=== PATIENT | female | born 1965 | race Caucasian/White ===

== ENCOUNTER 2024-07-19 06:13 | Day surgery (SDC) | payer BC, SELFPAY ==
[2024-07-19 11:16] VITALS: BMI 22.8
[2024-07-19 11:17] VITALS: BMI 22.8
[2024-07-19 13:02] VITALS: BP 143/75
[2024-07-19 13:17] VITALS: BP 90/51
[2024-07-19 13:30] VITALS: BP 91/65
== END 2024-07-19 13:43 | disposition home or self-care (01) ==
LOC: GI 06:13
PROVIDERS: ATTENDING PHYSICIAN Internal Medicine Gastroenterology
DX: K31.89 Other diseases of stomach and duodenum (principal); R93.5 Abnormal findings on diagnostic imaging of other abdominal regions, including retroperitoneum; R10.9 Unspecified abdominal pain; K25.9 Gastric ulcer, unspecified as acute or chronic, without hemorrhage or perforation; K29.50 Unspecified chronic gastritis without bleeding; C49.A2 Gastrointestinal stromal tumor of stomach
CPT/HCPCS: 43238; 43239; 88173; 88305; 88341; 88342

== ENCOUNTER 2024-09-04 11:11 | Inpatient (IN) | payer BC, SELFPAY ==
[2024-08-24 09:04] LABS: Hematocrit 38.7 % (37.0-47.0); Hemoglobin 12.9 g/dL (12.0-16.0); Mean Corp Hgb Conc. 33.3 g/dL (33.0-37.0); Mean Corpuscular Hgb 30.8 pg (27.0-31.0); Mean Corpuscular Volume 92.4 fL (81.0-99.0); Mean Platelet Volume 9.3 fL (7.4-10.4); Platelet Count 447 10^3/uL (130-400); Red Blood Cell Count 4.19 10^6/uL (4.20-5.40); Red Cell Dist. Width 12.2 % (11.5-14.5); White Blood Cell Count 4.9 10^3/uL (4.8-10.8)
[2024-08-24 09:23] LABS: INR 1.02; PT 13.8 Sec (11.4-14.6)
[2024-08-24 09:24] LABS: APTT 27.8 Sec (23.4-35.0)
[2024-08-24 09:32] LABS: ALT (SGPT) 46 U/L (0-35); AST (SGOT) 36 U/L (14-36); Albumin 4.2 g/dl (3.5-5.0); Alkaline Phosphatase 66 U/L (38-126); Blood Urea Nitrogen 14 mg/dl (7-17); Calcium 9.9 mg/dl (8.4-10.2); Carbon Dioxide 30 mmol/L (22-30); Chloride 104 mmol/L (98-107); Glucose 83 mg/dl (70-99); Potassium 4.8 mmol/L (3.5-5.1); Sodium 141 mmol/L (135-145); Total Bilirubin 0.7 mg/dl (0.2-1.3); Total Protein 7.1 g/dl (6.3-8.2); eGFR > 60.00
[2024-08-24 13:39] VITALS: BMI 21.5
[2024-09-04] VITALS (23 sets, daily range): BP systolic 60–124; BP diastolic 30–68; BMI 21.5
[2024-09-04] MEDS: TYLENOL 1000 MG PO (11:26)
[2024-09-04] MEDS: NEURONTIN 300 MG PO (11:27)
[2024-09-04] MEDS: NORMOSOL-R/PLASMALYTE-A 1000 IV ×3 (11:40→21:00)
[2024-09-04] MEDS: HEPARIN 5000 UNITS SC ×2 (11:48→20:46)
--- NOTE | 2024-09-04 15:01 | OR.RPT ---
Operative Report
Operative Report
Date of : 1965 3:00 PM
Date of Operation: September 04, 2024
Preoperative Diagnosis: Stomach GIST - [id number]
Postoperative Diagnosis: Same
Surgeon: Rory Castro M.D.
Operation: Attempted laparoscopy, resection of the gastric GIST - 53224
Anesthesia: General Anesthesia
Estimated Blood Loss: 20 cc
Drains: None
Specimen: Gastric tumor
Findings: Gastric tumor
Complications: None
Procedure:
The patient was transported to the operating room and positioned in the standard supine position. Once appropriate general endotracheal anesthesia was established, a Pressley catheter and NGT were inserted. The patient's abdomen was prepared and draped
in the customary manner.
At this time, a 1.5 cm supraumbilical incision was made with a #15 blade through the skin into the subcutaneous tissue. The fascia was identified and divided, and the intraperitoneal cavity was entered under direct vision. A Dasilva trocar was
placed, and the abdomen was insufflated to 15 mmHg. The abdomen was explored, and significant adhesions from her previous surgeries were noted throughout.
A 5 mm trocar was inserted into the left quadrant of the abdomen. The adhesions in the right upper quadrant were carefully lysed. Using a grasper, the liver was lifted off the underlying stomach. The visualization revealed no obvious gastric tumor.
Based on this information, a decision was made to proceed with exploratory laparotomy by making an upper midline incision with a #10 blade, which was taken through the skin into the subcutaneous tissue. The fascia was divided, and the abdomen was
entered. An Minesh wound retractor was placed, and the stomach was palpated. A tumor measuring approximately 3 cm was noted in the proximal portion of the stomach at the lesser curvature. This was carefully dissected away from the liver and the
underlying pancreas using an endo-MARY vascular stapler and a ligature.
The proximal portion of the stomach was completely from the surrounding structures. The tumor was resected with a 2 cm margin using an endo-MARY purple tri-stapler. After removal, the tumor was sent to pathology for permanent sectioning.
Hemostasis was achieved. The fascia was approximated with a #0 loop PDS in a running manner. The subcutaneous tissue was approximated with #3-0 Vicryl in a running manner. The skin was approximated with #4-0 Monocryl in a running subcuticular manner.
The previously made supraumbilical incision was also closed using #1 Vicryl for the fascial layer in an interrupted manner, and the subcutaneous tissue was approximated with #3-0 Monocryl in an interrupted manner. The skin was approximated with #4-0
Monocryl using a running subcuticular technique. The left quadrant 5 mm trocar was re-approximated with #4-0 nylon. Steri-Strips and therapeutic systems were applied.
The final needle, sponge, and instrument counts were correct. The Pressley catheter was removed. The patient was extubated and transferred to the PACU in a stable condition.
[2024-09-04] MEDS: DILAUDID 0.25 MG IV (15:59)
[2024-09-04] MEDS: D5/0.9% SODIUM CHLORIDE 1000 IV (17:30)
--- NOTE | 2024-09-04 17:35 | PTCARENOTE ---
Pt received from the PACU via bed. Transport was w/o incident. Pt is Drowsy, easily arousable. VS: 97.9-74-16-83/53-99 on 2Lnc. Will monitor BP closely and notify MD if it does not improve. Abd with antibacterial dressing, C/D/I no drainage noted at
this time. NGT to left nare hooked to low intermittent suction. Pt denies nausea and reports back pain. Pt repositioned and propped with pillows for comfort. Pt instructed on plan of care. Pt verbalized understanding of instructions. Call merino is
within reach.
[2024-09-04 21:07] LABS: Glucose - Point of Care 203 mg/dl (70-99)
[2024-09-04] MEDS: OFIRMEV 100 IV (22:35)
[2024-09-04 23:01] LABS: Hematocrit 33.6 % (37.0-47.0); Hemoglobin 11.7 g/dL (12.0-16.0); Mean Corp Hgb Conc. 34.8 g/dL (33.0-37.0); Mean Corpuscular Hgb 31.4 pg (27.0-31.0); Mean Corpuscular Volume 90.1 fL (81.0-99.0); Mean Platelet Volume 9.4 fL (7.4-10.4); Platelet Count 427 10^3/uL (130-400); Red Blood Cell Count 3.73 10^6/uL (4.20-5.40); Red Cell Dist. Width 12.1 % (11.5-14.5); White Blood Cell Count 10.5 10^3/uL (4.8-10.8)
[2024-09-04] MEDS: TORADOL 15 MG IV (23:07)
[2024-09-04] MEDS: NSS 500 IV (23:13)
[2024-09-04 23:14] LABS: Blood Urea Nitrogen 15 mg/dl (7-17); Carbon Dioxide 21 mmol/L (22-30); Chloride 106 mmol/L (98-107); Estimated Creatinine Clearance 80 ml/min; Glucose 157 mg/dl (70-99); Potassium 3.9 mmol/L (3.5-5.1); Sodium 137 mmol/L (135-145); eGFR > 60.00
[2024-09-05] VITALS (99 sets, daily range): BP systolic 81–138; BP diastolic 42–100; BMI 23.2
--- NOTE | 2024-09-05 | PTCARENOTE ---
Pt called complaining of pain. proceeded to check VS. Pt BP 60/30 manually. Pt found to be cold, clammy and diaphoretic. notified CASE ASSEMBLER. ordered to increase fluids. CASE ASSEMBLER at bedside. Pt BP 75/43. 1L bolus ordered. Pt bp after bolus 96/53. after bolus was
completed BP was continuing to drop. another 500 ml bolus ordered Pt BP 80/53. CASE ASSEMBLER ordered to transfer pt to ICU.
[2024-09-05] MEDS: LEVOPHED 250 IV ×2 (01:12→15:10)
--- NOTE | 2024-09-05 01:49 | W.PN.UPDATE ---
Update Note
Progress Note Update
2100 Asked to eval pt for hypotension.
Pt had gastric tumor removal with dr Castro today. Reviewing chart pt bp low most of stay in pacu. Pt tells me her BP normally is around 90/50s. SBPs now have been 60-70s. 1 liter ivf bolus given with minimal improvements. Pt did feel clammy and woozy.
Pt also in pain and making it difficult to medicate due to low bp.
TT sent to Dr Castro updating him on the events. Asked if he would be ok with giving pt toradol for pain. This was approved.
LAbs sent: HH stable at 11.7
After about an hour pt bp relatively unchanged after approx 1500ml of bolus.
Will transfer to IMU for low dose pressor
--- NOTE | 2024-09-05 01:51 | PTCARENOTE ---
Received patient AAOx4, following commands, reporting tolerable pain level of 4. NS 60s, levophed started to maintain SBP>90. Normothermic, palpable pedal pulsesd b/l, NATHAN stockings and SCDs on. Lung sounds diminished throughout, shallow breathing,
saturating 99% on room air. Abdomen soft, round, tender to palpation. Midline incision covered with primaseal. left laparoscopic site with surgical glue intact. Left nare [place] sump to LIWS putting out red/brown drainage. PIVs patent, WNL. On D5 NSS
per order. updated on phone. Call merino within reach.
[2024-09-05] MEDS: D5/0.9% SODIUM CHLORIDE 1000 IV ×2 (03:22→13:22)
[2024-09-05] MEDS: DILAUDID 0.5 MG IV (03:22)
[2024-09-05] MEDS: OFIRMEV 100 IV ×4 (03:22→22:34)
[2024-09-05 04:50] LABS: Hematocrit 25.5 % (37.0-47.0); Hemoglobin 8.9 g/dL (12.0-16.0); Mean Corp Hgb Conc. 34.9 g/dL (33.0-37.0); Mean Corpuscular Hgb 31.3 pg (27.0-31.0); Mean Corpuscular Volume 89.8 fL (81.0-99.0); Mean Platelet Volume 9.5 fL (7.4-10.4); Platelet Count 500 10^3/uL (130-400); Red Blood Cell Count 2.84 10^6/uL (4.20-5.40); Red Cell Dist. Width 12.1 % (11.5-14.5); White Blood Cell Count 9.3 10^3/uL (4.8-10.8)
[2024-09-05 05:25] LABS: Blood Urea Nitrogen 13 mg/dl (7-17); Calcium 7.6 mg/dl (8.4-10.2); Carbon Dioxide 24 mmol/L (22-30); Chloride 110 mmol/L (98-107); Estimated Creatinine Clearance 80 ml/min; Glucose 191 mg/dl (70-99); Magnesium 2.3 mg/dl (1.6-2.3); Phosphorus 3.5 mg/dl (2.5-4.5); Potassium 4.2 mmol/L (3.5-5.1); Sodium 136 mmol/L (135-145); eGFR > 60.00
[2024-09-05] MEDS: HEPARIN SC (08:51)
[2024-09-05] MEDS: NSS (PRESERVATIVE FREE) 8 ML IV (08:52)
[2024-09-05] MEDS: PEPCID 20 MG IV (08:52)
[2024-09-05] MEDS: TRANEXAMIC ACID 110 MG IV (08:53)
[2024-09-05] MEDS: DILAUDID 0.25 MG IV ×2 (09:17→21:09)
[2024-09-05 10:54] LABS: Hematocrit 24.3 % (37.0-47.0); Hemoglobin 8.5 g/dL (12.0-16.0); Mean Corpuscular Hgb 31.5 pg (27.0-31.0); Mean Platelet Volume 9.6 fL (7.4-10.4); Platelet Count 531 10^3/uL (130-400); Red Cell Dist. Width 12.3 % (11.5-14.5); White Blood Cell Count 11.8 10^3/uL (4.8-10.8)
[2024-09-05 11:33] LABS: Blood Urea Nitrogen 12 mg/dl (7-17); Calcium 8.2 mg/dl (8.4-10.2); Carbon Dioxide 22 mmol/L (22-30); Chloride 110 mmol/L (98-107); Estimated Creatinine Clearance 80 ml/min; Glucose 149 mg/dl (70-99); Potassium 4.4 mmol/L (3.5-5.1); Sodium 136 mmol/L (135-145); eGFR > 60.00
--- NOTE | 2024-09-05 13:05 | CM ---
Patient seen at bedside with Makenna
IA completed
Explained CM role
Operation: Attempted laparoscopy, resection of the gastric GIST - 37705
PMH: ovarian ca dx in 1994
Patient lives with in a 2 story home, 2 steps to enter, full bath on 1st floor, flight stairs to bedroom
PLOF: independent, no assistive device used
DME: walker, crutches, cane, wheelchair
Denies VN/Rehab
Denies insecurities
PCP: Jena Peck
Pharmacy: [facility]
PLAN: TBD, based upon medical progression, CM to continue to follow
--- NOTE | 2024-09-05 13:10 | PTCARENOTE ---
Received pt @ change of shift. Assessment per charting- see flow sheet. Levo gtt titrated up over shift to keep SBP >90- see flow sheet. Dr. Castro made aware of increasing levo requirement. No s/s of obvious bleeding; hbg @ 1100 resulted 8.5.
results also relayed to Dr. Castro. Pt.'s remains @ bedside w call wilber w in reach.
--- NOTE | 2024-09-05 14:45 | W.PN.GENERIC ---
Assessment / Plan
-
S/p resection of gastric GIST POD #1
Hypotension
BP in 100s/60s on 8 of Levophed
Most likely multifactorial, low baseline BP, perioperative blood loss, anesthesia, dilutional
Continue current support. Hope to taper off Levophed
Will check another Hg @ 6pm
Continue monitor in IMU
Encourage pulmonary toilet
Physician Progress Note
Subjective
C/o incisional pain
Objective
Vital Signs
Temp Pulse Resp BP Pulse Ox
97.6 F 66 21 88/44 100
09/05/24 11:30 09/05/24 11:01 09/05/24 11:01 09/05/24 11:01 09/05/24 11:08
Abdomen - soft, ND, NT, Dsg - C/D/I
Hg drifted to 8.5 (11 AM today)
--- NOTE | 2024-09-05 14:49 | CON.HOSP ---
Family Physician
-
Family Physician: Jena Peck
Chief Complaint
-
hypotension
History of Present Illness
Patient is a 59-year-old female with past medical history significant for osteoarthritis, hyperlipidemia and Hx ovarian cancer (Dx 1994) who had a gastrointestinal stromal tumor resection yesterday with Dr. Castro. Following the procedure patient
became hypotensive and admitted to monitor and manage. Patient reports her normal SBP is 90-110. Overnight patient continued to become hypotensive and was transferred to IMU for pressor support. Patient is currently on 8 units Levophed with a MAP of
59. Patient states she has some abdominal discomfort and is managed with current pain regimen. She denies any fevers, chills, shortness of breath, nausea or vomiting.
Medical History
Past Medical History
Past Medical History: Reports Other
Additional Past Medical History:
osteoarthritis
hyperlipidemia
Hx ovarian cancer (Dx 1994)
Past Surgical History: Reports Other
Additional Past Surgical History:
gastrointestinal stromal tumor resection
frozen shoulder release
eye surgery
2 surgeries pertaining to ovarian cancer
Social History
Tobacco: Non-smoker
Alcohol: Occasional (rare )
Drug: None
Family History
Family History: Reviewed & Not Pertinent
Allergies / Home Medications
Allergies reflects when Allergies were last updated in [facility].
Home Medications with original date entered in [facility]
Allergy/Medication List:
Allergies
Allergy/AdvReac Type Severity Reaction Status Date / Time
adhesive Allergy ERYTHEMA Verified 09/04/24 11:11
amoxicillin Allergy Rash Verified 09/04/24 11:11
codeine Allergy rash and Verified 09/04/24 21:47
nausea
Home Medications
aspirin 81 mg capsule 81 mg PO HS Blood Pressure 07/19/24
loratadine 10 mg capsule 10 mg PO DAILY PRN allergies 07/19/24
multivitamin 1 tab PO DAILY Supplement 07/19/24
simvastatin 40 mg tablet 40 mg PO HS High Cholesterol 07/19/24
Review of Systems
-
History Source: Patient
Abdomen/GI: Reports Abdominal Pain (mild discomfort post surgery )
Physical Exam
Vital Signs
Vital Signs
Temp Pulse Resp BP Pulse Ox
97.6 F 66 21 88/44 100
09/05/24 11:30 09/05/24 11:01 09/05/24 11:01 09/05/24 11:01 09/05/24 11:08
Physical Exam
General: Well Developed, Well Nourished and No Apparent Distress
HEENT: Normocephalic, Moist Mucous Membranes and Atraumatic
Respiratory: Clear
Cardiac: S1/S2 and Regular Rhythm
Breast: Deferred by me
GI: Soft, Non Tender, Non Distended and Normal Bowel Sounds
Rectal: Deferred by Provider
Musculoskeletal: No Clubbing, No Cyanosis and No Edema
Skin: Other (dressing to abdominal incision C/D/I)
Neuro: Awake, Alert, AO x 3 and Nonfocal/Grossly Intact
Psych: Calm and Intact Judgement
Laboratory Results
-
PT 13.8 Sec (11.4-14.6) 08/24/24 08:40
INR 1.02 08/24/24 08:40
APTT 27.8 Sec (23.4-35.0) 08/24/24 08:40
Total Bilirubin 0.7 mg/dl (0.2-1.3) 08/24/24 08:40
AST 36 U/L (14-36) 08/24/24 08:40
ALT 46 U/L (0-35) H 08/24/24 08:40
Alkaline Phosphatase 66 U/L (38-126) 08/24/24 08:40
Data Reviewed
-
Lab Data: Labs Reviewed (WBC 11.8, hgb 8.5, hct 24.3)
Impression / Plan
-
IMPRESSION/PLAN:
#hypotension likely 2/2 postsurgical anemia
#acute anemia
#gastrointestinal stromal tumor resection
Hgb downtrending today 11.7 --> 8.5
- Transfer to ICU level of care
- Consult Under Trimmer
- Levophed gtt
- IVF 125cc/hr
- monitor H/H
- Transfuse for hgb < 8.0
#electrolyte imbalance
Ca+ 8.2
- check CMP with next lab drawn, replete as indicated
#hyperlipidemia
- continue aspirin and atorvastatin
#osteoarthritis
#Hx ovarian cancer (Dx 1994)
Code status: full code
DVT prophylaxis: heparin sq
--- NOTE | 2024-09-05 15:19 | W.PN.UPDATE ---
Update Note
Progress Note Update
This is an addendum to H&P written by Marilyn Gutierrez on 09/05/2024.� Patient seen examined independently with TOBACCO WRAPPING MACHINE TENDER.
59-year-old female past medical history of ovarian cancer in 1994 status post�surgery, hypotension with baseline blood pressure�90s-110 systolic, came in for elective resection of�GIST tumor.� She was found to have GI mass in May with biopsy
showing GIST in May.�Patient underwent resection of GIST tumor yesterday with 20 cc blood loss.
Afterwards patient became hypotensive requiring bolus of IV fluids and later Levophed.� Patient is currently requiring higher rate of Levophed requiring transfer to ICU.
Labs show leukocytosis, downtrending hemoglobin from 11.7-8.5 today. Blood sugar currently 400-500s due to being D5NS fluids.�
Suspect hypotension secondary to postsurgical anemia. No signs of sepsis. Continue IV fluids but change D5NS to NS due to hyperglycemia. Currently on Levophed.�Recheck CBC at 1800.Transfuse for Hb <8. �
--- NOTE | 2024-09-05 16:19 | CON.INTV ---
Consultation
Consultation Request
Date/Time Consultation Requested: 09/05/2024
Date/Time Consultation Performed: 09/05/2024
Reason for Consultation: Pressor support
Medical History
-
Chief Complaint: Hypotension
History of Present Illness:
59-year-old female past med history of OA, hyperlipidemia, ovarian cancer in 1994 who presented to [facility] yesterday for elective removal of a GIST tumor. She had a procedure with Dr. Rory Castro. Following her procedure she was found to be
hypotensive and transferred to the IMU for pressor support. She was started on Levophed, currently getting 8 as well as IV fluid infusion. She was persistently hypotensive and was transferred to ICU for increasing pressor support. Of note her
hemoglobin dropped from 11.7-8.5 today. Patient reports no bowel movements, only passing gas. As for today she is only complaining of pain in her belly, diffusely and back, chronic. She is using Dilaudid and Tylenol for pain. Of note she has
aspirin on her home meds however she reports she has not taken aspirin in over 7 days and anticipation for surgery, was started on aspirin for thrombocytosis and cardiac preventative measurements. Patient reports that overnight she had episodes
where her pressure was dropping and she began feeling hot sweaty.
Past Medical History
Past Medical History: Other (OA, hyperlipidemia)
Past Surgical History: Other (GIST removal)
Allergies / Home Medications
Allergies
Allergy/AdvReac Type Severity Reaction Status Date / Time
adhesive Allergy ERYTHEMA Verified 09/04/24 11:11
amoxicillin Allergy Rash Verified 09/04/24 11:11
codeine Allergy rash and Verified 09/04/24 21:47
nausea
Home Medications
�Medication �Instructions �Recorded �Confirmed �Last Taken �Type
aspirin 81 mg capsule 81 mg PO HS Blood Pressure 07/19/24 09/04/24 08/28/24 History
loratadine 10 mg capsule 10 mg PO DAILY PRN allergies 07/19/24 09/04/24 09/01/24 History
multivitamin 1 tab PO DAILY Supplement 07/19/24 09/04/24 08/28/24 History
simvastatin 40 mg tablet 40 mg PO HS High Cholesterol 07/19/24 09/04/24 09/03/24 21:00 History
Review of Systems
-
Constitutional: Fatigue and Other (Reported hot, sweaty)
Respiratory: No Symptoms
Cardiac: No Symptoms
Abdomen/GI: Abdominal Pain and Nausea
Neuro: No Symptoms
Vitals / Labs / Diagnostic Testing
Vital Signs
Temp Pulse Resp BP Pulse Ox
98.1 F 66 21 88/44 100
09/05/24 15:10 09/05/24 11:01 09/05/24 11:01 09/05/24 11:01 09/05/24 11:08
Diagnostic Testing:
Physical Exam
-
Cardiovascular: S1/S2 and Regular Rhythm
Respiratory: Clear
GI: Soft, Tender (Diffusely tender all 4 quadrants, no rebound, no guard) and Other (Dressing and sites are clean, dressed. No redness, no foul smell)
Neurology: Awake, Alert, Oriented and AO x 3
Assessment
-
Assessment:
59-year-old female presents for GIST elective removal, transferred to IMU and ICU for increasing pressor support. Component of anemia, suspected secondary to surgery.
Plan:
#Hypotension
#Acute blood loss anemia
#GIST resection
Currently patient is requiring 8 of Levophed, MAP is sufficient, nursing reports she will likely titrate down
Taper Levophed as tolerated
Was originally on D5 fluids, was transferred to normal saline after elevated blood glucose
Continue 125 cc normal saline infusion
Hemoglobin downtrending 11.7-8.5
Suspect component of delusional and acute blood loss anemia from surgery. No signs of sepsis
Hemoglobin target of 8 for transfusion by surgery, patient aware and willing to accept blood if needed
Patient reports no bowel movements, only passing gas, pressor support not increasing
Hemoglobin recheck pending at 6 PM tonight, if continually downtrending will check CT abdomen pelvis with IV contrast
Continue ICU level care
Will check lactate and VBG
Reinitiated IV Tylenol 1000 mg as needed every 6 hours as patient is n.p.o.
Dilaudid as needed, antiemetics as needed
Surgical oncology following
Continue DVT prophylaxis subcu heparin [address] every [address] Pressley
Daily CBC in a.m.
#Hypocalcemia
Calcium low, albumin not checked, cannot correct for albumin
Albumin pending, correct as needed
Diet: N.p.o.
DVT prophylaxis: Subcu heparin
CODE STATUS full code
[2024-09-05] MEDS: NSS 1000 IV (16:26)
[2024-09-05 18:46] LABS: Venous Blood Gas B.E. -1.7 mmol/L (-4 to +4); Venous Blood Gas HCO3 23.7 mmol/L (22-27); Venous Blood Gas O2 Sat % 99.4 %; Venous Blood Gas pCO2 42 mmHg (35-48); Venous Blood Gas pH 7.36 (7.32-7.43); Venous Blood Gas pO2 132 mmHg (30-50)
[2024-09-05 18:53] LABS: Hematocrit 23.1 % (37.0-47.0); Hemoglobin 7.9 g/dL (12.0-16.0); Mean Corp Hgb Conc. 34.2 g/dL (33.0-37.0); Mean Corpuscular Hgb 31.2 pg (27.0-31.0); Mean Corpuscular Volume 91.3 fL (81.0-99.0); Mean Platelet Volume 9.7 fL (7.4-10.4); Platelet Count 389 10^3/uL (130-400); Red Blood Cell Count 2.53 10^6/uL (4.20-5.40); Red Cell Dist. Width 12.3 % (11.5-14.5); White Blood Cell Count 11.5 10^3/uL (4.8-10.8)
[2024-09-05 19:00] LABS: Lactic Acid 1.7 mmol/L (0.7-2.0)
[2024-09-05 19:08] LABS: ALT (SGPT) 42 U/L (0-35); AST (SGOT) 50 U/L (14-36); Albumin 3.4 g/dl (3.5-5.0); Alkaline Phosphatase 50 U/L (38-126); Blood Urea Nitrogen 9 mg/dl (7-17); Calcium 8.1 mg/dl (8.4-10.2); Carbon Dioxide 25 mmol/L (22-30); Chloride 112 mmol/L (98-107); Estimated Creatinine Clearance 80 ml/min; Glucose 118 mg/dl (70-99); Potassium 4.5 mmol/L (3.5-5.1); Sodium 137 mmol/L (135-145); Total Bilirubin 0.7 mg/dl (0.2-1.3); Total Protein 5.8 g/dl (6.3-8.2); eGFR > 60.00
--- NOTE | 2024-09-05 20:37 | PTCARENOTE ---
Flushed right wrist PIV before blood admin. PIV is sensitive but flushes good. Pain decreases as flush continued. Started blood admin and rt wrist PIV is hurting pt. Called VAT, currently present at bedside with pt.
[2024-09-05] MEDS: HEPARIN 5000 UNITS SC (22:21)
--- NOTE | 2024-09-05 22:49 | PTCARENOTE ---
Received patient AAOx3, following commands, reporting 4/10 pain. Ofirmev given, receiving blood, at bedside. NS 80s, BP stable, titrating levophed to maintain SBP>90. Trace generalized anasarca, palpable pedal and radial pulses b/l.
Normothermic. 99% on room air, lung sounds diminished throughout, IS at bedside. Abdomen soft, tender, positive bowel sounds. Midline abdominal dressing CDI, left laparoscopic site DANIA with surgical glue intact. Right midline inserted by IV team.
Left PIV patent, right hand IV removed due to pain/swelling. Repositioned, call merino within reach.
--- NOTE | 2024-09-05 23:38 | PTCARENOTE ---
Blood finished, vitals charted. Patient comfortable after ofirmev, call merino within reach.
[2024-09-06] VITALS (44 sets, daily range): BP systolic 79–148; BP diastolic 45–85; BMI 24.1
[2024-09-06] MEDS: NSS 1000 IV ×2 (01:21→08:46)
--- NOTE | 2024-09-06 04:30 | PTCARENOTE ---
Patient assessment unchanged from previous. Labs sent, repositioned, fresh ice packs given. Patient denied to be washed up now, wants to do it later. Ofirmev given for 4/10 abdominal pain. Call merino within reach.
[2024-09-06] MEDS: OFIRMEV 100 IV ×4 (04:32→22:02)
[2024-09-06 04:36] LABS: Hematocrit 25.4 % (37.0-47.0); Hemoglobin 8.8 g/dL (12.0-16.0); Mean Corp Hgb Conc. 34.6 g/dL (33.0-37.0); Mean Corpuscular Hgb 31.5 pg (27.0-31.0); Mean Platelet Volume 9.5 fL (7.4-10.4); Platelet Count 356 10^3/uL (130-400); Red Blood Cell Count 2.79 10^6/uL (4.20-5.40); Red Cell Dist. Width 13.1 % (11.5-14.5); White Blood Cell Count 8.6 10^3/uL (4.8-10.8)
[2024-09-06 04:54] LABS: Blood Urea Nitrogen 8 mg/dl (7-17); Carbon Dioxide 26 mmol/L (22-30); Chloride 115 mmol/L (98-107); Estimated Creatinine Clearance 70 ml/min; Glucose 93 mg/dl (70-99); Potassium 4.2 mmol/L (3.5-5.1); Sodium 141 mmol/L (135-145); eGFR > 60.00
[2024-09-06] MEDS: DILAUDID 0.25 MG IV ×3 (07:27→19:24)
--- NOTE | 2024-09-06 08:00 | PTCARENOTE ---
Assumed care of patient. Pt rec'd sleeping. Easily arousable. Pleasant. A&Ox3. Abdominal pain this am....pain meds provided...see MAR. JHAVERI's but weak. S1 S2 reg w/ NSR on monitor. +PP. +1 generalized edema. Thigh hi teds/knee hi SCD's on.
On R/A...sats 99%. Lungs clear but diminished in bases. Abdomen round...hypo BS. Pressley draining yellow urine. Pressley care done. Original post op mid abdominal aquacell noted...mild shadowing. (L) abdominal lap site. Ultrasound guided 20P LFA
noted...IVF's and levophed gtt infusing. Right midline noted. VS documented. Mouth swabs provided. Call merino within reach. Will continue to monitor closely.
[2024-09-06] MEDS: HEPARIN 5000 UNITS SC ×2 (08:46→19:24)
[2024-09-06] MEDS: PEPCID 20 MG IV (08:46)
[2024-09-06] MEDS: NSS (PRESERVATIVE FREE) 8 ML IV (08:46)
--- NOTE | 2024-09-06 10:45 | PTCARENOTE ---
OOB to chair w/ assist x 2. Pt's at bedside and fully updated. Levophed gtt weaned to off. Will monitor BP's.
--- NOTE | 2024-09-06 11:00 | W.PN.INTV ---
Today's Communication / Plan
Recommendations
Surgical oncology to evaluate for diet
Continue tapering Levophed as tolerated
Changed normal saline to lactated Ringer's 75 cc/h
Continue supportive medications for pain and nausea
Recheck H&H at 3 PM, transfuse packed red blood cell if hemoglobin below 8
Assessment
-
Assessment:
59-year-old female presents for GIST elective removal, transferred to IMU and ICU for increasing pressor support. Component of anemia, suspected secondary to surgery.
Plan:
#Hypotension
#Acute blood loss anemia
#GIST resection
Currently patient requiring 2 of Levophed, MAP greater than 65
Continue Taper Levophed as tolerated
Discontinue normal saline as patient is becoming hyperchloremic and sodium is trending upwards.
Replaced with LR 75 cc/h
Patient is starting to appear edematous, once patient able to tolerate p.o. medications, no longer requiring pressors, blood pressures are no longer soft, will discontinue fluids and initiate p.o. Lasix
Hemoglobin decreased to 7.9 overnight and patient received 1 unit of packed red blood cell. Hemoglobin appropriately raised to 8.8. Continue transfuse if hemoglobin less than 8 as patient is requiring pressors
Will recheck H&H today at 3 PM
No signs of sepsis
Patient reports no bowel movements, only passing gas, pressor support decreasing
Lactate and VBG within normal limits
IV Tylenol and IV Dilaudid as needed for pain
antiemetics as needed
Surgical oncology following. Will defer diet to surgical oncology
Continue DVT prophylaxis subcu heparin 5000 every 12
Pressley placed, patient making ample dilute urine
Daily CBC in a.m.
#Hypocalcemia
Resolved
Corrected calcium 8.5
Diet: N.p.o.
DVT prophylaxis: Subcu heparin
CODE STATUS full code
Subjective Dataa
Subjective Data
Date of Service:
Date of Service: September 06, 2024
Subjective:
Patient received 1 unit of packed red blood cell overnight for hemoglobin 7.9. Patient still reporting passing gas, no bowel movements. Reports mild postoperative pain in the abdomen, diffusely. Has been able to be weaned down to 2 mcg Levophed,
MAP 73. VBG within normal limits, lactate within normal limits.
Review of Systems
General: Other (Negative)
Cardiopulmonary: Other (Negative)
GI: Abdominal Pain (Diffuse abdominal pain all 4 quadrants, localized around surgical incisions.) and Nausea
Genitourinary: Pressley
Objective Data
Data Reviewed
Vital Signs / I&O / Oxygen:
Vital Signs
Temp Pulse Resp BP Pulse Ox
98.8 F 67 15 109/76 97
09/06/24 07:36 09/06/24 06:00 09/06/24 06:00 09/06/24 05:30 09/06/24 05:45
Intake and Output
09/05/24 09/06/24 09/07/24
06:59 06:59 06:59
Intake Total 1802.6 / 1938.9 4198.9 / 4198.9
Output Total 700 / 700 2235 / 2235
Balance 1102.6 / 1238.9 1963.9 / 1963.9
SaO2 97
Nasal Cannula flow liters per 1
minute
Physical Exam
Cardiovascular: S1-S2
Respiratory: Clear
GI: Soft and Tender (Tender in all 4 quadrants, surgical site clean. No erythema, no foul smell. Tenderness exacerbated around surgical site. No rebound, no guarding.)
Neurology: Awake, Alert, Oriented and AO x 3
Skin: Warm
Labs/Micro/Reports
Lab Data
09/06/24 04:19
[2024-09-06] MEDS: LR 1000 IV (11:48)
--- NOTE | 2024-09-06 12:15 | PTCARENOTE ---
Pt remains resting in chair. No major changes in physical assessment. Remains off levophed gtt. Seen by . Diet advanced to clear liquids.
--- NOTE | 2024-09-06 12:46 | W.PN.GENERIC ---
Assessment / Plan
-
S/p gastric GIST resection POD #2
Stable. No evidence of active bleeding. Currently off Levophed
If hemodynamically remains stable off Levophed, poss transfer to the surgical floor.
Will start clear liquid diet.
Will consider diuresis if remain stable x 24 hours.
Physician Progress Note
Subjective
Feeling better. No N/V. Received 1U of PRBCs.
Objective
Vital Signs
Temp Pulse Resp BP Pulse Ox
98.4 F 59 11 99/66 95
09/06/24 11:42 09/06/24 11:45 09/06/24 11:45 09/06/24 11:30 09/06/24 11:45
Lab Results
09/06/24 04:19
Abdomen - soft. Dsg intact
--- NOTE | 2024-09-06 13:48 | W.PN.HOSP.TC ---
Addendum entered and electronically signed by Joseph Villafana DO 09/06/24 14:04:
Additional diagnosis
Anemia:
- Perioperative blood loss
- Transfused 1 unit PRBCs
- Hemoglobin currently stable without evidence of active bleeding
- Continue to monitor and transfuse further as needed to maintain hemoglobin levels greater than 8.0
Original Note:
Today's Communication/Plan
-
Assessment / Plan
Assessment / Plan
General: No Apparent Distress, Comfortable and Conversant
HEENT: NormoCephalic, Moist mucous membranes, Atraumatic
Respiratory: Clear and Non Labored Respirations
Cardiac: S1/S2 and Regular Rhythm; No Rub or Gallop
GI: Soft, TTP, Non Distended and Normal Bowel Sounds
Musculoskeletal: No Edema, no deformity
Skin: Warm and dry
: Pressley draining clear yellow urine
Neuro: Awake, Alert, Nonfocal/grossly intact
Psych: Calm and Intact Judgment/Insight
Ms. 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
following laparoscopic converted to open abdominal surgery for resection of gastrointestinal stromal tumor. Tolerated procedure well but was hypotensive postoperatively requiring initiation of vasopressors. She has been admitted to the ICU for
further evaluation and management.
Hypovolemic shock:
- Suspect due to periprocedural blood loss in addition to baseline hypotension
- Levophed was placed on hold this morning and maps have been acceptable
- Continue IV fluids
- Doubt infection
- Postoperative leukocytosis likely reactive and has since resolved without antibiotics
Gastrointestinal stromal tumor:
- Follow-up with surgical pathology
- Ongoing treatment per oncology
DVT prophylaxis: Subcu heparin
CODE STATUS: Full code
Total time spent on today's encounter was 40 minutes
Anticipated Discharge: 24 - 48 hours
Subjective/Interval History
-
Date of Service: September 06, 2024
Patient was seen and examined at bedside this morning. Still having significant abdominal pain postoperatively. Blood pressure improved and Levophed is now on hold.
Objective Data
-
Labs:
Laboratory Results
09/06/24 09/06/24
04:19 15:00
WBC 8.6
Hgb 8.8 L Pending
Hct 25.4 L Pending
Plt Count 356
Sodium 141
Potassium 4.2
Chloride 115 H
Carbon Dioxide 26
BUN 8
Creatinine 0.8
Glucose 93
Calcium 8.0 L
Vital Signs:
Vital Signs
Temp Pulse Resp BP Pulse Ox
98.4 F 59 11 99/66 95
09/06/24 11:42 09/06/24 11:45 09/06/24 11:45 09/06/24 11:30 09/06/24 11:45
I&O
09/05/24 09/06/24 09/07/24
06:59 06:59 06:59
Intake Total 1802.6 / 1938.9 4198.9 / 4331.4 805.0 / 805.0
Output Total 700 / 700 2235 / 2335 525 / 525
Balance 1102.6 / 1238.9 1963.9 / 1996.4 280.0 / 280.0
Review of Systems
-
History Source: Patient
All other systems: Reviewed and negative
Abdomen/GI: Reports Abdominal Pain
Physical Exam
-
General: No Apparent Distress
[2024-09-06 15:32] LABS: Hematocrit 24.3 % (37.0-47.0); Hemoglobin 8.6 g/dL (12.0-16.0)
--- NOTE | 2024-09-06 15:59 | CM ---
POD#2, clear liquid diet. No PT eval. Discharge Plan of Care: TBD. Anticipate home with HH RN. Will get preferences from patient.
--- NOTE | 2024-09-06 16:00 | PTCARENOTE ---
Remains OOB resting comfortably. No major changes in physical assessment since am. Keep duncan per . Taking po clear liquids without issue. Call merino within reach. Safe environment confirmed.
[2024-09-07] VITALS (8 sets, daily range): BP systolic 95–148; BP diastolic 51–100; BMI 24.1
[2024-09-07] MEDS: LR 1000 IV ×2 (00:37→14:06)
[2024-09-07] MEDS: OFIRMEV 100 IV (04:01)
[2024-09-07 05:38] LABS: Hematocrit 23.5 % (37.0-47.0); Hemoglobin 8.5 g/dL (12.0-16.0); Mean Corp Hgb Conc. 36.2 g/dL (33.0-37.0); Mean Corpuscular Volume 88.3 fL (81.0-99.0); Mean Platelet Volume 9.5 fL (7.4-10.4); Platelet Count 305 10^3/uL (130-400); Red Blood Cell Count 2.66 10^6/uL (4.20-5.40); Red Cell Dist. Width 13.3 % (11.5-14.5); White Blood Cell Count 5.4 10^3/uL (4.8-10.8)
[2024-09-07 05:46] LABS: Blood Urea Nitrogen 7 mg/dl (7-17); Calcium 8.7 mg/dl (8.4-10.2); Carbon Dioxide 23 mmol/L (22-30); Chloride 113 mmol/L (98-107); Estimated Creatinine Clearance 80 ml/min; Glucose 76 mg/dl (70-99); Potassium 3.7 mmol/L (3.5-5.1); Sodium 139 mmol/L (135-145); eGFR > 60.00
--- NOTE | 2024-09-07 07:50 | PTCARENOTE ---
Report given by outgoing shift RN- Cande RN to 2S receiving nurse 'Sienna'. Pt transferred via bed to Rm [id number] and then stood and transferred self w/ supervision into new bed. All personal belongings sent w/ pt. Pt states 'I let my know' of
transfer via 'text'.
[2024-09-07] MEDS: DILAUDID 0.25 MG IV ×2 (08:24→15:22)
[2024-09-07] MEDS: NSS (PRESERVATIVE FREE) 8 ML IV (08:25)
[2024-09-07] MEDS: PEPCID 20 MG IV (08:25)
[2024-09-07] MEDS: HEPARIN 5000 UNITS SC (08:26)
--- NOTE | 2024-09-07 13:53 | W.PN.GENERIC ---
Assessment / Plan
-
S/p gastric GIST resection POD #3
No evidence of bleeding. Stable Hg
BP remains stable
Will give 20 mg IV Lasix. Keep Pressley while diuresing
Increase diet to soft
Encourage ambulation
Physician Progress Note
Subjective
Feeling better. Some incisional pain
Objective
Vital Signs
Temp Pulse Resp BP Pulse Ox
98.7 F 76 18 112/73 100
09/07/24 03:31 09/07/24 13:48 09/07/24 13:48 09/07/24 13:48 09/07/24 07:45
Lab Results
09/07/24 05:16
09/07/24 05:16
Abdomen - soft, ND. Dsg - CDI
[2024-09-07] MEDS: TORADOL 15 MG IV ×2 (14:06→20:09)
[2024-09-07] MEDS: LASIX 20 MG IV (14:07)
--- NOTE | 2024-09-07 14:59 | W.PN.HOSP.TC ---
Today's Communication/Plan
-
Assessment / Plan
Assessment / Plan
General: No Apparent Distress, Comfortable and Conversant
HEENT: NormoCephalic, Moist mucous membranes, Atraumatic
Respiratory: Clear and Non Labored Respirations
Cardiac: S1/S2 and Regular Rhythm; No Rub or Gallop
GI: Soft, TTP, Non Distended and Normal Bowel Sounds
Musculoskeletal: No Edema, no deformity
Skin: Warm and dry
: Pressley draining clear yellow urine
Neuro: Awake, Alert, Nonfocal/grossly intact
Psych: Calm and Intact Judgment/Insight
Ms. 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
following laparoscopic converted to open abdominal surgery for resection of gastrointestinal stromal tumor. Tolerated procedure well but was hypotensive postoperatively requiring initiation of vasopressors. She has been admitted to the ICU for
further evaluation and management.
Hypovolemic shock:
- Resolved
- Suspect due to periprocedural blood loss in addition to baseline hypotension
- Levophed was placed on hold this morning and maps have been acceptable
- Doubt infection
- Postoperative leukocytosis likely reactive and has since resolved without antibiotics
Gastrointestinal stromal tumor:
- Status post tumor resection 09/04, tolerated procedure well
- Now passing gas and tolerating clear liquid diet, diet advanced to soft today
- Follow-up with surgical pathology
- Ongoing treatment per oncology
Anemia:
- Acute on chronic including some expected perioperative blood loss
- Transfused 1 unit PRBCs
- Hemoglobin currently stable with no evidence of active bleeding
- Will monitor and transfuse further as needed to maintain hemoglobin greater than 8.0
DVT prophylaxis: Subcu heparin
CODE STATUS: Full code
Total time spent on today's encounter was 40 minutes
Anticipated Discharge: 24 - 48 hours
Subjective/Interval History
-
Date of Service: September 07, 2024
Patient was seen and examined at bedside this morning. Continues to have abdominal pain at her surgical site but is passing gas and tolerating a clear liquid diet. Feels puffy from IV fluids.
Objective Data
-
Labs:
Laboratory Results
09/07/24
05:16
WBC 5.4
Hgb 8.5 L
Hct 23.5 L
Plt Count 305
Sodium 139
Potassium 3.7
Chloride 113 H
Carbon Dioxide 23
BUN 7
Creatinine 0.7
Glucose 76
Calcium 8.7
Vital Signs:
Vital Signs
Temp Pulse Resp BP Pulse Ox
98.7 F 76 18 112/73 100
09/07/24 03:31 09/07/24 13:48 09/07/24 13:48 09/07/24 13:48 09/07/24 07:45
I&O
09/06/24 09/07/24 09/08/24
06:59 06:59 06:59
Intake Total 4198.9 / 4331.4 2615.0 / 2690.0 300 / 300
Output Total 2235 / 2335 2255 / 2255
Balance 1963.9 / 1996.4 360.0 / 435.0 300 / 300
Review of Systems
-
History Source: Patient
All other systems: Reviewed and negative
Abdomen/GI: Reports Abdominal Pain
Physical Exam
-
General: No Apparent Distress
[2024-09-08] MEDS: TORADOL 15 MG IV ×3 (01:15→13:15)
[2024-09-08] MEDS: FLUSH (NSS) 2 FLUSH IV (01:16)
[2024-09-08 05:40] VITALS: BMI 22.7
[2024-09-08 06:27] LABS: % Basophils 0.6 % (0-2); % Eosinophils 5.9 % (0-6); % Immature Granulocytes 0.2 % (0-0.5); % Neutrophils 51.3 % (42.2-75.2); Absolute Eosinophils 0.3 10^3/uL (0-0.7); Absolute Lymphocytes 1.8 10^3/uL (1.2-3.4); Absolute Monocytes 0.4 10^3/uL (0.1-0.6); Absolute Neutrophils 2.7 10^3/uL (1.4-6.5); Hematocrit 25.3 % (37.0-47.0); Hemoglobin 8.8 g/dL (12.0-16.0); Mean Corp Hgb Conc. 34.8 g/dL (33.0-37.0); Mean Corpuscular Hgb 31.3 pg (27.0-31.0); Mean Platelet Volume 9.5 fL (7.4-10.4); Nucleated Red Blood Cells % 0 %; Platelet Count 343 10^3/uL (130-400); Red Blood Cell Count 2.81 10^6/uL (4.20-5.40); Red Cell Dist. Width 12.9 % (11.5-14.5); White Blood Cell Count 5.3 10^3/uL (4.8-10.8)
[2024-09-08 06:51] LABS: Blood Urea Nitrogen 7 mg/dl (7-17); Calcium 9.2 mg/dl (8.4-10.2); Carbon Dioxide 32 mmol/L (22-30); Chloride 107 mmol/L (98-107); Estimated Creatinine Clearance 80 ml/min; Glucose 90 mg/dl (70-99); Sodium 140 mmol/L (135-145); eGFR > 60.00
[2024-09-08 07:20] VITALS: BP 98/55
[2024-09-08] MEDS: NSS (PRESERVATIVE FREE) 8 ML IV (07:51)
[2024-09-08] MEDS: PEPCID 20 MG IV (07:52)
--- NOTE | 2024-09-08 10:54 | W.DS.TRANS ---
DC Summary - [employer]
-
Discharge Instructions:
Sleep Apnea Risk Low
Discharge Diagnosis/Procedures Gastric GIST
Diet Other diet
Additional Diets soft diet
Activity No strenuous activity
Additional Activity No heavy lifting
Driving Restrictions not until stop taking narcotics
Bathing Restrictions OK to Shower
Instructions:
Stand-Alone Forms:
Changes to Home Medications: Yes
Discharge Medications:
DC Medications w/original date entered in [facility]
loratadine 10 mg capsule 10 mg PO DAILY PRN allergies 07/19/24
multivitamin 1 tab PO DAILY Supplement 07/19/24
simvastatin 40 mg tablet 40 mg PO HS High Cholesterol 07/19/24
Home Medication Changes
Pending Results: No
--- NOTE | 2024-09-08 12:55 | CM ---
Patient has been medically cleared for discharge to home with no additional skilled services. Patient declined HH. Family member will remain with patient. Family will transport home.
[2024-09-08 13:07] VITALS: BP 109/64
== END 2024-09-08 13:53 | disposition home or self-care (01) | DRG 326 ==
LOC: 2 SOUTH 11:11
PROVIDERS: Nurse Practitioner Family; Nurse Practitioner Gerontology; ADMITTING PHYSICIAN Surgery; ATTENDING PHYSICIAN Internal Medicine; CONSULT PHYSICIAN Hospitalist; CONSULT PHYSICIAN Internal Medicine; FAMILY PHYSICIAN Family Medicine
PROC: 0DB60ZZ Excision of Stomach, Open Approach (ICD-10-PCS; 2024-09-04)
PROC: 30233N1 Transfusion of Nonautologous Red Blood Cells into Peripheral Vein, Percutaneous Approach (ICD-10-PCS; 2024-09-05)
DX: C49.A2 Gastrointestinal stromal tumor of stomach (principal); T81.19XA Other postprocedural shock, initial encounter; D62 Acute posthemorrhagic anemia; E83.51 Hypocalcemia; E78.5 Hyperlipidemia, unspecified; Z85.43 Personal history of malignant neoplasm of ovary; I95.81 Postprocedural hypotension
CPT/HCPCS: 88307; 36415; 80048; 80053; 82805; 82962; 83605; 83735; 84100; 85014; 85018; 85025; 85027; 85610; 85730; 86850; 86900; 86901; 86920; 87070; 93005; C1776; P9016